=== PATIENT | male | born 1950 ===

== ENCOUNTER 2020-10-28 10:26 | Inpatient (IN) | payer OTHER ==
[~2020-10-28] VITALS: Ht 170.2 cm; Wt 102.1 kg
[2020-10-28] MEDS ORDERED: METFORMIN HCL500 M3 PO (11:44)
[2020-10-28] MEDS ORDERED: GLIPIZIDE XL10 MG PO (11:45)
[2020-10-28] MEDS ORDERED: COZAAR50 MG PO (11:45)
[2020-10-28] MEDS ORDERED: LASIX20 MG PO (11:45)
[2020-10-28] MEDS ORDERED: TOPROL XL100 M1 PO (11:45)
[2020-10-28] MEDS ORDERED: CALCIUM 600 +1 EAC3 PO (11:46)
[2020-10-28] MEDS ORDERED: ADULT LOW DOSE81 M1 PO (11:46)
[2020-11-03] MEDS ORDERED: METOPROLOL TAR100 MG (08:03)
== END 2020-11-06 13:37 | disposition home or self-care (01) | DRG 330 ==
LOC: SURH 11-03 05:53 → O/R 11-03 05:53 → SURH 11-03 07:00
PROVIDERS: ADMIT Colon & Rectal Surgery; ATTEND Colon & Rectal Surgery
PROC: 07BB4ZZ Excision of Mesenteric Lymphatic, Percutaneous Endoscopic Approach (ICD-10-PCS; 2020-11-03)
PROC: 0DTF4ZZ Resection of Right Large Intestine, Percutaneous Endoscopic Approach (ICD-10-PCS; principal; 2020-11-03 07:00)
DX: D12.0 Benign neoplasm of cecum (principal); K92.1 Melena; Z85.038 Personal history of other malignant neoplasm of large intestine; I10 Essential (primary) hypertension; E11.9 Type 2 diabetes mellitus without complications; R59.0 Localized enlarged lymph nodes

== ENCOUNTER 2021-03-02 11:45 | Inpatient (IN) | payer OTHER ==
[~2021-03-02] VITALS: Ht 170.2 cm; Wt 255.0 kg
[~2021-03-02 11:45] MED LIST: ADULT LOW DOSE81 M1 PO; CALCIUM 600 +1 EAC3 PO; COZAAR50 MG PO; GLIPIZIDE XL10 MG PO; LASIX20 MG PO; METFORMIN HCL500 M3 PO; METOPROLOL TAR100 MG; TOPROL XL100 M1 PO
[2021-03-10] MEDS ORDERED: CHLORTHALIDONE25 MG (14:48)
[2021-03-10] MEDS ORDERED: METOPROLOL TAR100 MG (14:49)
== END 2021-03-10 22:54 | disposition home or self-care (01) | DRG 394 ==
LOC: SURH 03-09 08:05 → O/R 03-09 08:05 → SURH 03-09 10:45 → O/R 03-09 14:09 → SURH 03-09 15:02
PROVIDERS: ADMIT Colon & Rectal Surgery; ATTEND Colon & Rectal Surgery
PROC: 0DBP8ZZ Excision of Rectum, Via Natural or Artificial Opening Endoscopic (ICD-10-PCS; principal; 2021-03-09 10:45)
DX: D12.8 Benign neoplasm of rectum (principal); C18.0 Malignant neoplasm of cecum; Z85.038 Personal history of other malignant neoplasm of large intestine; I10 Essential (primary) hypertension; E11.9 Type 2 diabetes mellitus without complications